=== PATIENT | male | born 1980 | race Caucasian/White ===

== ENCOUNTER 2024-04-15 16:06 | Emergency (ER) | payer SELFPAY ==
[2024-04-15] VITALS (12 sets, daily range): BP systolic 117–131; BP diastolic 67–79; PULSE 69–74; TEMP 37.2; O2SAT 95–100; BMI 28.7
--- NOTE | 2024-04-15 16:18 | CT_ITS ---
The [address] [address] Patient Name: ANEL ALCOCER MRN: [id number] date: 1980 Sex: M Assigned Patient Location: ER Current Patient Location: ER Accession/Order Number: [id number] Exam Date: 04/15/2024 17:04 Report Date: 04/15/2024 18:04 At the request of: THEA HALL Procedure: CT facial bones wo con EXAMINATION: CT head/brain wo con, CT facial bones wo con, CT cervical spine wo con HISTORY: Seizure COMPARISON: None. TECHNIQUE: CT scan of the head was performed without IV contrast. CT dose reduction technique was used, including Automated Exposure Control. FINDINGS: Head and facial bones: There are no extra-axial fluid collections. There is no mass effect or midline shift. The cerebral ventricles and sulci are normal. The brain demonstrates normal attenuation. Basal cisterns are patent. There is bilateral subcortical and deep periventricular white matter chronic microvascular ischemia. Bilateral ethmoid and bilateral maxillary sinuses mucosal thickening. Retention cysts/polyp of bilateral maxillary sinus. Bilateral orbits, remaining paranasal sinuses and mastoid air cells are patent. No skull base fracture. Nasal bones, mandible and remaining facial bones are normal. The TM joints is in place. Cervical spine: Normal cervical spine lordosis. No acute fracture. No spondylolisthesis. Atlantodental interval is normal. Degenerative changes of cervical spine contrast by endplate osteophytes. Disc desiccation of the lower cervical spine. No significant spinal canal stenosis. CT/CT facial bones wo con IMPRESSION: No acute intracranial hemorrhage. No definite intra or extra-axial mass. Brain MRI is recommended for evaluation of subtle lesion, if clinically warranted. No acute fracture of the facial bones or cervical spine. Electronically authenticated by: LUPE GENTILE Date: 04/15/2024 18:04
--- NOTE | 2024-04-15 16:18 | CT_ITS ---
The [address] [address] Patient Name: ANEL ALCOCER MRN: [id number] date: 1980 Sex: M Assigned Patient Location: ER Current Patient Location: ER Accession/Order Number: [id number] Exam Date: 04/15/2024 17:04 Report Date: 04/15/2024 18:04 At the request of: THEA HALL Procedure: CT cervical spine wo con EXAMINATION: CT head/brain wo con, CT facial bones wo con, CT cervical spine wo con HISTORY: Seizure COMPARISON: None. TECHNIQUE: CT scan of the head was performed without IV contrast. CT dose reduction technique was used, including Automated Exposure Control. FINDINGS: Head and facial bones: There are no extra-axial fluid collections. There is no mass effect or midline shift. The cerebral ventricles and sulci are normal. The brain demonstrates normal attenuation. Basal cisterns are patent. There is bilateral subcortical and deep periventricular white matter chronic microvascular ischemia. Bilateral ethmoid and bilateral maxillary sinuses mucosal thickening. Retention cysts/polyp of bilateral maxillary sinus. Bilateral orbits, remaining paranasal sinuses and mastoid air cells are patent. No skull base fracture. Nasal bones, mandible and remaining facial bones are normal. The TM joints is in place. Cervical spine: Normal cervical spine lordosis. No acute fracture. No spondylolisthesis. Atlantodental interval is normal. Degenerative changes of cervical spine contrast by endplate osteophytes. Disc desiccation of the lower cervical spine. No significant spinal canal stenosis. CT/CT cervical spine wo con IMPRESSION: No acute intracranial hemorrhage. No definite intra or extra-axial mass. Brain MRI is recommended for evaluation of subtle lesion, if clinically warranted. No acute fracture of the facial bones or cervical spine. Electronically authenticated by: LUPE GENTILE Date: 04/15/2024 18:04
--- NOTE | 2024-04-15 16:18 | CT_ITS ---
[address] [address] Patient Name: ANEL ALCOCER MRN: [id number] date: 1980 Sex: M Assigned Patient Location: ER Current Patient Location: ER Accession/Order Number: [id number] Exam Date: 04/15/2024 17:04 Report Date: 04/15/2024 18:04 At the request of: THEA HALL Procedure: CT head/brain wo con EXAMINATION: CT head/brain wo con, CT facial bones wo con, CT cervical spine wo con HISTORY: Seizure COMPARISON: None. TECHNIQUE: CT scan of the head was performed without IV contrast. CT dose reduction technique was used, including Automated Exposure Control. FINDINGS: Head and facial bones: There are no extra-axial fluid collections. There is no mass effect or midline shift. The cerebral ventricles and sulci are normal. The brain demonstrates normal attenuation. Basal cisterns are patent. There is bilateral subcortical and deep periventricular white matter chronic microvascular ischemia. Bilateral ethmoid and bilateral maxillary sinuses mucosal thickening. Retention cysts/polyp of bilateral maxillary sinus. Bilateral orbits, remaining paranasal sinuses and mastoid air cells are patent. No skull base fracture. Nasal bones, mandible and remaining facial bones are normal. The TM joints is in place. Cervical spine: Normal cervical spine lordosis. No acute fracture. No spondylolisthesis. Atlantodental interval is normal. Degenerative changes of cervical spine contrast by endplate osteophytes. Disc desiccation of the lower cervical spine. No significant spinal canal stenosis. CT/CT head/brain wo con IMPRESSION: No acute intracranial hemorrhage. No definite intra or extra-axial mass. Brain MRI is recommended for evaluation of subtle lesion, if clinically warranted. No acute fracture of the facial bones or cervical spine. Electronically authenticated by: LUPE GENTILE Date: 04/15/2024 18:04
--- NOTE | 2024-04-15 16:19 | ED_ITS ---
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 He states he has infrequent seizures, about every 6 months or so and this is not uncommon for him. His brother is at the bedside and states he witnessed the patient having a 5 to 7-minute epileptic seizure consistent with previous seizure activity. Patient states he takes Tegretol although he has not skipped any dosages, he states he drank alcohol last weekend and knows that that can induce a seizure while on the medication. He sustained a superficial laceration to the right eyelid. He denies any significant pain at this time. No vomiting or recent illness. He was brought to the emergency department by EMS. Related Data Home Medications ?Medication ?Instructions ?Recorded ?Confirmed carbamazepine PO 04/15/24 Allergies Allergy/AdvReac Type Severity Reaction Status Date / Time No Known Drug Allergies Allergy Verified 04/15/24 16:16 Review of Systems ROS Constitutional Denies: fever or chills Ears, nose, mouth, and throat Denies: throat pain or nasal congestion Respiratory Denies: shortness of breath Gastrointestinal Denies: nausea or vomiting Musculoskeletal Denies: back pain, neck pain or extremity pain Integumentary/Breast Denies: rash Neurological Denies: headache Hematologic/Lymphatic Denies: easy bruising or easy bleeding Exam Narrative Exam Narrative: Gen.: Awake, alert, in no distress Head: Normocephalic, atraumatic ENT: Moist mucous membranes; 1.5 cm superficial laceration to the right upper eyelid with superficial scratches adjacent. No deep laceration through the eyelid. Dried blood noted to the right orbit Respiratory: No respiratory distress Cardio: Regular rate and rhythm Extremities: Moves extremities equally Psych: Normal mood and affect Neuro: No focal neuro deficit Skin: Warm, dry Constitutional Vital Signs, click to edit/add: Last Vital Signs Temp 98.9 F 04/15/24 16:10 Pulse 69 04/15/24 17:34 Resp 18 04/15/24 17:34 BP 117/67 04/15/24 17:33 Pulse Ox 99 04/15/24 17:33 O2 Del Method Room Air 04/15/24 17:16 Course Vital Signs Vital signs: Vital Signs Temperature 98.9 F 04/15/24 16:10 Pulse Rate 70 04/15/24 16:10 Respiratory Rate 18 04/15/24 16:10 Blood Pressure 131/71 04/15/24 16:10 Pulse Oximetry 100 04/15/24 16:10 Oxygen Delivery Method Room Air 04/15/24 16:10 Temperature 98.9 F 04/15/24 16:10 Pulse Rate 69 04/15/24 17:34 Respiratory Rate 18 04/15/24 17:34 Blood Pressure 117/67 04/15/24 17:33 Pulse Oximetry 99 04/15/24 17:33 Oxygen Delivery Method Room Air 04/15/24 17:16 MDM - Seizure MDM Narrative Medical decision making narrative: CTs of the head, facial bones and cervical spine are unremarkable. Patient with normal extraocular muscle motion in the ER. Superficial lacerations of the eyelid were cleaned, repaired with Dermabond. Patient was treated with Dilantin for coverage of seizure activity. He had no further seizure activity in the ER. He is not intoxicated and his vital signs are stable. He is discharged home to follow-up with neurology and return to the ER if symptoms change or worsen. His initial history, physical exam and discharge instructions were given with the use of Estonian russian language professor. Medical Records Attestation: I reviewed the patient's medical records. Lab Data Attestation: I reviewed the patient's lab results. Labs: Lab Results 04/15/24 Range/Units 14:50 WBC 8.7 (4.0-11.0) 10^3/uL RBC 5.04 (4.70-6.10) 10^6/uL Hgb 16.5 (14.0-18.0) g/dL Hct 48.4 (42.0-54.0) % MCV 96.0 H (80.0-94.0) fL MCH 32.7 (25.9-34.0) pg MCHC 34.1 (29.9-35.2) g/dL RDW 11.4 (11.0-15.0) % Plt Count 273 (150-450) 10^3/uL MPV 9.5 (9.5-13.5) fL Neut % (Auto) 65.6 (43.0-75.0) % Lymph % (Auto) 21.7 (20.5-60.0) % Stevens % (Auto) 9.8 (1.7-12.0) % Eos % (Auto) 2.5 (0.9-7.0) % Baso % (Auto) 0.2 (0.2-2.0) % Neut # (Auto) 5.7 (1.4-6.5) 10^3/uL Lymph # (Auto) 1.9 (1.2-3.8) 10^3/uL Stevens # (Auto) 0.9 H (0.3-0.8) 10^3/uL Eos # (Auto) 0.2 (0.0-0.7) 10^3/uL Baso # (Auto) 0.0 (0.0-0.1) 10^3/uL Abs Immat Gran (auto) 0.02 (0.00-0.03) 10^3/uL Imm/Tot Granulo (auto) 0.2 (0.0-0.5) % Sodium 141 (136-145) mmol/L Potassium 4.4 (3.5-5.1) mmol/L Chloride 106 (98-107) mmol/L Carbon Dioxide 27.7 (21.0-32.0) mmol/L Anion Gap 11.7 BUN 15.0 (7.0-18.0) mg/dL Creatinine 1.08 (0.70-1.30) mg/dL Est GFR ( Amer) >60 (>=60) Est GFR (Non-Af Amer) >60 (>=60) BUN/Creatinine Ratio 13.9 Glucose 122 H (74-106) mg/dL Calcium 8.9 (8.5-10.1) mg/dL Total Bilirubin 0.2 (0.2-1.0) mg/dL AST 22 (15-37) U/L ALT 34 (16-63) U/L Alkaline Phosphatase 72 (46-116) U/L Total Protein 7.3 (6.4-8.2) g/dL Albumin 3.6 (3.4-5.0) g/dL Globulin 3.7 g/dL Albumin/Globulin Ratio 1.0 Ethanol Quant <3 mg/dL Imaging Data CT scan - head: Attestation: I have reviewed the pertinent imaging results. Radiologist's impression: ITS Impressions Cervical Spine CT 04/15/24 16:18 IMPRESSION: No acute intracranial hemorrhage. No definite intra or extra-axial mass. Brain MRI is recommended for evaluation of subtle lesion, if clinically warranted. No acute fracture of the facial bones or cervical spine. Electronically authenticated by: TopPatch Date: 04/15/2024 18:[address] 04/15/24 16:18 IMPRESSION: No acute intracranial hemorrhage. No definite intra or extra-axial mass. Brain MRI is recommended for evaluation of subtle lesion, if clinically warranted. No acute fracture of the facial bones or cervical spine. Electronically authenticated by: TopPatch Date: 04/15/2024 18:[address] 04/15/24 16:18 IMPRESSION: No acute intracranial hemorrhage. No definite intra or extra-axial mass. Brain MRI is recommended for evaluation of subtle lesion, if clinically warranted. No acute fracture of the facial bones or cervical spine. Electronically authenticated by: TopPatch Date: 04/15/2024 18:04 Discharge Plan Discharge Stand Alone Forms: Portal Instructions Chief Complaint: Seizure Clinical Impression: Epileptic seizure, Eyelid laceration Patient Disposition: Home, Self-Care Time of Disposition Decision: 18:10 Condition: Good Prescriptions / Home Meds: No Action carbamazepine PO Print Language: Estonian Instructions: Skin Adhesive Care (ED), Recurrent Seizures in Adults (ED) Referrals: Physician,Non-Staff, MD [Primary Care Provider] - 1 week
[2024-04-15 17:04] LABS: Basophils Percent Auto 0.2 % (0.2-2.0); Eosinophils Absolute Auto 0.2 10^3/uL (0.0-0.7); Eosinophils Percent Auto 2.5 % (0.9-7.0); Hematocrit 48.4 % (42.0-54.0); Hemoglobin 16.5 g/dL (14.0-18.0); Immature Granulocytes Abs Auto 0.02 10^3/uL (0.00-0.03); Immature Granulocytes Pct Auto 0.2 % (0.0-0.5); Lymphocytes Absolute Auto 1.9 10^3/uL (1.2-3.8); Lymphocytes Percent Auto 21.7 % (20.5-60.0); Mean Corpuscular HGB Conc 34.1 g/dL (29.9-35.2); Mean Corpuscular Hemoglobin 32.7 pg (25.9-34.0); Mean Platelet Volume 9.5 fL (9.5-13.5); Monocytes Absolute Auto 0.9 10^3/uL (0.3-0.8); Monocytes Percent Auto 9.8 % (1.7-12.0); Neutrophils Absolute Auto 5.7 10^3/uL (1.4-6.5); Neutrophils Percent Auto 65.6 % (43.0-75.0); Platelet Count 273 10^3/uL (150-450); Red Blood Count 5.04 10^6/uL (4.70-6.10); Red Cell Distribution Width 11.4 % (11.0-15.0); White Blood Count 8.7 10^3/uL (4.0-11.0)
[2024-04-15 17:20] LABS: Alanine Aminotransferase 34 U/L (16-63); Albumin Level 3.6 g/dL (3.4-5.0); Alkaline Phosphatase 72 U/L (46-116); Anion Gap 11.7; Aspartate Amino Transferase 22 U/L (15-37); BUN Creatinine Ratio 13.9; Bilirubin Total 0.2 mg/dL (0.2-1.0); Calcium 8.9 mg/dL (8.5-10.1); Carbon Dioxide 27.7 mmol/L (21.0-32.0); Chloride 106 mmol/L (98-107); Estimated GFR (African America >60 (>=60); Estimated GFR (Non-African Ame >60 (>=60); Globulin 3.7 g/dL; Glucose 122 mg/dL (74-106); Potassium 4.4 mmol/L (3.5-5.1); Sodium 141 mmol/L (136-145); Total Protein 7.3 g/dL (6.4-8.2)
[2024-04-15] MEDS: 0.9 % SODIUM CHLORIDE 1,000 ML 1000 ML IV (17:26)
[2024-04-15] MEDS: PHENYTOIN SODIUM 1,000 MG in 0.9 % SODIUM CHLORIDE 100 ML 240 MG IV (17:26)
[2024-04-15 17:36] LABS: Ethanol <3 mg/dL
== END 2024-04-15 18:29 | disposition home or self-care (01) ==
PROVIDERS: Physician Assistant; Emergency Provider Emergency Medicine
DX: G40.909 Epilepsy, unspecified, not intractable, without status epilepticus (principal); S01.111A Laceration without foreign body of right eyelid and periocular area, initial encounter; X58.XXXA Exposure to other specified factors, initial encounter; Z79.899 Other long term (current) drug therapy
CPT/HCPCS: 12011; 36415; 70450; 70486; 72125; 80053; 80320; 85025; 96365; 99285